=== PATIENT | male | born 1990 | race Caucasian/White ===

== ENCOUNTER 2018-07-14 13:43 | Observation (INO) | payer OTHER ==
[2018-07-14] MEDS ORDERED: methylPREDNISolone SOD SUCC 125 MG/2 ML VIAL IM ONE (13:58)
[2018-07-14] MEDS ORDERED: methylPREDNISolone SOD SUCC 125 MG/2 ML VIAL ONE (13:59)
--- NOTE | 2018-07-14 14:10 | EDPHY ---
H & P Stated Complaint: lower back pain flared while climbing at gym Time Seen by Provider: 07/14/18 13:51 HPI/ROS: CHIEF COMPLAINT: Acute exacerbation of chronic back pain HISTORY OF PRESENT ILLNESS: 28-year-old male history of chronic intermittent left lumbar back pain was [place] ring at a local gym today, started to feel exacerbation of his low back pain with certain moved. He climbed down and rested but notes that his back pain became progressively worse over the next few minutes. At no point did he experience direct trauma or fall onto the area. This feels like his usual back pain exacerbation. He arrives via EMS as he is visiting this area. Patient was given 100 mcg of fentanyl via EMS and notes significant improvement symptoms. He denies: Direct trauma or fall, saddle anesthesia, incontinence, retention, , lower extremity radiculopathy, abdominal pain, dyspnea PRIMARY CARE PROVIDER: REVIEW OF SYSTEMS: A ten point review of systems was performed and is negative with the exception of the items mentioned in the HPI PAST MEDICAL & SURGICAL HISTORY: chronic intermittent low back pain SOCIAL HISTORY:Visiting from out of state, on a road trip, living out of his van PHYSICAL EXAM (Prior to examination, patient consented to physical exam, hands were washed and my usual and customary physical exam procedures followed) 1) GENERAL: Well-developed, well-nourished, alert and oriented. Appears to be in no acute distress as long as he is not moving laying supine however when he is asked to sit up or roll over he complains of pain to the left paraspinous lumbar region. 2) HEAD: Normocephalic, atraumatic 3) HEENT: Pupils equal, round, reactive to light bilaterally. Sclera anicteric. Nasopharynx, oropharynx, clear, no lesions. 4) NECK: Full range of motion, no meningeal signs. 5) LUNGS: Clear auscultation bilaterally, no wheezes, no rhonchi, no retractions. 6) HEART: Regular rate and rhythm, no murmur, no heave, no gallop. 7) ABDOMEN: No guarding, no rebound, no focal tenderness, negative McBurney's, negative Sheppard's, negative Rovsing's, negative peritoneal sign, 8) MUSCULOSKELETAL: Moving all extremities, no focal areas of tenderness, no obvious trauma. No peripheral edema or discoloration. 9) BACK: tender to palpation left paraspinous paraspinous muscle. No CVA tenderness, no midline vertebral tenderness, no fluctuance, no step-off, no obvious trauma, no visual or palpable abnormality. Patella, Achilles reflexes intact to bilateral strength 5/5 10) SKIN: No rash, no petechiae. 11) NEURO: Awake, alert, and oriented to person, place and time. Answers questions appropriately. There were no obvious focal neurologic abnormalities. No cerebellar dysfunction. Normal steady gait. Upper and lower extremities bilaterally with strength 5 / 5, reflexes 2+.. DIFFERENTIAL DIAGNOSIS: In no particular order, including but not limited to, fracture, sprain/strain, cauda equina, spinal infectious etiology. - Personal History Current Tetanus Diphtheria and Acellular Pertussis (TDAP): No - Medical/Surgical History Hx Asthma: No Hx Chronic Respiratory Disease: No Hx Diabetes: No Hx Cardiac Disease: No Hx Renal Disease: No Hx Cirrhosis: No Hx Alcoholism: No Hx HIV/AIDS: No Hx Splenectomy or Spleen Trauma: No Other PMH: chronic back pain - Social History Smoking Status: Current every day smoker Constitutional: Initial Vital Signs Temperature (C) 36.5 C 07/14/18 13:49 Heart Rate 81 07/14/18 13:49 Respiratory Rate 16 07/14/18 13:49 Blood Pressure 144/84 H 07/14/18 13:49 O2 Sat (%) 97 07/14/18 13:49 O2 Delivery Mode Room Air Home Medications: Medication Instructions Recorded NK [No Known Home Meds] 07/14/18 Medical Decision Making Procedures: 2:00 p.m.: Procedure: Trigger point injection Indications: Focal tenderness at the left lumbar paraspinous region Indications risks benefits discussed with patient. Using Solu-Medrol and 0.5% plain bupivacaine on a 27 gauge needle that was introduced into the muscle, multiple injections were fanned in my usual and customary fashion paying careful attention to anatomic landmarks and structures. Patient tolerated procedure well. ED Course/Re-evaluation: Patient has been re-evaluated with serial exams most recently at 3:50 p.m.. He has received trigger-point injections, Flexeril, Decadron, Toradol. States that he is unable to moving does not feel he can be discharged as he is currently living out of his van and has to climb into his van in order to sleep. No neurologic red flag signs or symptoms on exam. Will hold on imaging at this time. Doubt cauda equina or spinal infectious etiology in absence of history of recent intervention , IV drug use, indwelling device. I consulted with the hospitalist at 3:[address] Pj Galeas who will admit patient. Care of patient under supervision of secondary supervising physician Dr Khan with whom I discussed case. - Data Points Medications Given: Discontinued Medications Cyclobenzaprine HCl (Flexeril) 10 mg PO EDNOW ONE Stop: 07/14/18 14:47 Last Admin: 07/14/18 14:55 Dose: 10 mg Dexamethasone (Decadron Injection) 10 mg IVP EDNOW ONE Stop: 07/14/18 14:47 Last Admin: 07/14/18 14:55 Dose: 10 mg Ketorolac Tromethamine (Toradol) 15 mg IVP EDNOW ONE Stop: 07/14/18 14:47 Last Admin: 07/14/18 14:55 Dose: 15 mg Methylprednisolone Sodium Succinate (Solu-Medrol) 125 mg IM EDNOW ONE Stop: 07/14/18 13:59 Last Admin: 07/14/18 14:00 Dose: 125 mg Miscellaneous Medication (Icy Hot Lidocaine/Menthol 4%/1% Patch) 1 patch TD EDNOW ONE Stop: 07/14/18 14:48 Last Admin: 07/14/18 14:55 Dose: 1 patch Departure - Departure Disposition: [facility] Inpatient Acute Clinical Impression: Intractable low back pain, Mountain,rock/wall climb Condition: Fair Referrals: Patient,NotPresent [Unknown] - As per Instructions
[2018-07-14] MEDS ORDERED: CYCLOBENZAPRINE 10 MG TAB PO ONE (14:46)
[2018-07-14] MEDS ORDERED: DEXAMETHASONE 10 MG/ML VIAL IVP ONE (14:46)
[2018-07-14] MEDS ORDERED: KETOROLAC 15 MG/1 ML SDV IVP ONE (14:46)
[2018-07-14] MEDS ORDERED: LIDOCAINE 4%/MENTHOL 1% PATCH TD ONE (14:47)
[2018-07-14] MEDS ORDERED: NITROGLYCERIN 2% 1 GM PACKET ONE (15:34)
[2018-07-14 16:08] LABS: PLATELET COUNT 287 10^3/uL (150-400)
[2018-07-14] MEDS ORDERED: ONDANSETRON DISINTEGRATING 4 MG TAB PO PRN (16:59)
[2018-07-14] MEDS ORDERED: oxyCODONE IR 5 MG TAB PO PRN (16:59)
[2018-07-14] MEDS ORDERED: ONDANSETRON 4 MG/2 ML VIAL IVP PRN (16:59)
--- NOTE | 2018-07-14 17:36 | GHP ---
[f rep st] HISTORY AND PHYSICAL DATE OF ADMISSION: 07/14/2018 HISTORY OF PRESENT ILLNESS: The patient is a 28-year-old gentleman with a history of intermittent le ft lower back pain. He was at the climbing gym today and, after he topped out on a couple of routes, he felt some pain in his lower back and his left side. He laid down on the climbing gym floor feeli ng weak. He was really unable to get up and do anything thereafter. Ultimately, he sought care here in the emergency department. After receiving fentanyl, Flexeril, Toradol, etc, the patient still jeronimo s significant back pain. He also had a lidocaine patch, dexamethasone, and a trigger point injection . He states that he has had previous symptoms like this going back about 7 or 8 years. He has been car ed for because he was in the . It sounds like he received some films. He does not use IV dr napoleon. He has had no incontinence. He has no lower extremity weakness. He was feeling well this morn ing. He has not had fever, chills, unexplained weight loss, rash on the skin, fecal or urinary incon tinence. PAST MEDICAL HISTORY: None. ALLERGIES: None. HOME MEDICATIONS: None. SOCIAL HISTORY: He currently living out of his van. Originally from [place], [place]; this is [facility]. Nonsmoker. FAMILY HISTORY: Reviewed and unremarkable. PHYSICAL EXAMINATION: VITAL SIGNS: Temp 36.5, blood pressure 144/84, now 124/55, pulse 81, breathin g 16 times a minute, 97% on room air. GENERAL: No acute distress, lying flat. HEENT: Sclerae anic teric. Oropharynx clear. Mucous membranes are moist. NECK: Supple without lymphadenopathy or JVD. LUNGS: Clear to auscultation bilaterally. HEART: S1, S2. ABDOMEN: Soft, nontender, nondistende d. LOWER EXTREMITIES: Without edema. Calves are nontender. SKIN: Without rash. NEUROLOGIC: He has 5/5 plantar flexion and dorsiflexion, 5/5 thigh extension and flexion. With leg flexion, it is s omewhat limited by pain and is probably 3/5 or 4/5. There is no imaging. LABS: White count 11; hematocrit 43; platelets 287,000. His initial labs look as if there was speci men drawn above the line with a low potassium of 2.3 and a bicarb of 15 with a serum chloride of 123. Point of care labs are somewhat normal. Repeat is pending. I have discussed the case with Svitlana thapa PA-C. ASSESSMENT/PLAN: A 28-year-old gentleman with low back pain, acute on chronic. 1. Back pain. This does not really raise the specter of disk herniation or unstable back with focal neurologic findings. I will obtain a plain film. We will hold off on more advanced imaging for the time being. Regarding pain, we will put him on scheduled Tylenol, scheduled Toradol, scheduled Alex um with some p.r.n. oral narcotics. We will also add another p.r.n. muscle relaxant. We will stay a way from IV narcotics; I do not think they are necessary. 2. Hypokalemia. I think this is a lab error. We will wait for the result. 3. Metabolic acidosis. Again, I think this is likely to be a lab error and will wait for the repeat . 4. Leukocytosis is mild and will follow. Please note, the patient is afebrile. DISPOSITION: Observation status. /[id number]/MODL
[2018-07-14] MEDS: DIAZEPAM 5 MG TAB PO SCH (18:29)
[2018-07-14] MEDS: KETOROLAC 30 MG/1 ML SDV IVP SCH (20:59)
[2018-07-14] MEDS ORDERED: PATCH REMOVAL 1 EA PATCH TD SCH (21:00)
[2018-07-14] MEDS: ACETAMINOPHEN 500 MG TAB PO SCH (22:26)
[2018-07-15] MEDS: DIAZEPAM 5 MG TAB PO SCH ×4 (00:53→18:13)
[2018-07-15] MEDS: KETOROLAC 30 MG/1 ML SDV IVP SCH ×2 (02:39→08:56)
[2018-07-15] MEDS: ACETAMINOPHEN 500 MG TAB PO SCH ×3 (06:12→22:27)
--- NOTE | 2018-07-15 11:22 | ASMTCMCOM ---
CM Note CM Note Notes: Pt is a 28 y/o man admitted for intractable low back pain. Pt currently lives out of his van. PT has been ordered and awaiting recommendations. Pt will most likely d/c independent when medically stable. CM available for changes. Plan: Independent Date Signed: 07/15/2018 11:22 AM Electronically Signed By:JUMANA Alex
[2018-07-15] MEDS ORDERED: PNEUMOCOCCAL 0.5ML VACCINE VIAL (PNEUMOVAX 23) IM ONE (14:45)
[2018-07-15] MEDS: methylPREDNISolone 4 MG TAB PO SCH ×4 (14:58→21:13)
[2018-07-15] MEDS: LIDOCAINE 4%/MENTHOL 1% PATCH TD SCH (14:59)
--- NOTE | 2018-07-15 19:24 | HOSPPROG ---
Hospitalist Progress Note Assessment/Plan: 1. Severe lumbar back pain, improved since admission -continue with valium, stop toradol, add medrol dose pack -has po pain meds ordered -lumbar xray ordered to ensure no fracture -no indication for MRI at this point -PT while here and can write order as outpt -will need PCP if staying in area to help arrange FU DISPO- likely discharge in AM depending upon ambulation, pain control, and imaging results Subjective: Says still having pain today, better when laying down. Tried to get up with PT, used walker bc hurts to wt bear. Says pain radiates up L back to mid back. Denies pain radiation to buttocks or legs. Denies n/tingling in legs. Denies fever. Denies fall/trauma. Was climbing at a gym, had recently been in [place] on a climbing trip, then drove here. Staying in his van while travelling. GF lives in dorms at . Denies prev MRI of cheryl, had an xray while in the , unsure of results. No previous known disc problems or fractures. Denies bowel/ bladder control issues. Objective: Vital Signs Temp Pulse Resp BP Pulse Ox 98.2 F 51 L 14 108/44 L 95 07/15/18 16:49 07/15/18 16:49 07/15/18 16:49 07/15/18 16:49 07/15/18 16:49 Laboratory Results 07/14/18 15:55 07/14/18 16:50 07/14/18 07/15/18 07/16/18 11:59 11:59 11:59 Intake Total 800 500 Balance 800 500 - Time Spent With Patient Time Spent with Patient: greater than 35 minutes (total floor time) Time Spent with Patient: Greater than 35 minutes spent on this patients care, greater than 50% of time spent counseling, educating, and coordinating care regarding the above mentioned plan. - Pending Discharge Pending Discharge Within 48 Hours: Yes Pending Discharge Date: 07/17/18 Pending Discharge Time: 11:00 - Physical Exam Constitutional: no apparent distress, appears nourished, other (laying flat, uncomfortable/slow to move to LL side for exam) Eyes: anicteric sclera, EOMI Ears, Nose, Mouth, Throat: moist mucous membranes, hearing normal Cardiovascular: regular rate and rhythym, no murmur, rub, or gallop, No edema Respiratory: no respiratory distress, no rales or rhonchi, clear to auscultation Gastrointestinal: normoactive bowel sounds, soft, non-tender abdomen, No guarding, No rebound, No distension Skin: warm, normal color Musculoskeletal: full muscle strength (moves B LE, nl/equal strength B LE, uncomfortable to raise legs off bed), muscular tenderness (left paraspinous in lumbar area, with marked spasm), other Neurologic: sensation intact bilaterally (LE), No weakness Psychiatric: interacting appropriately, not anxious, not encephalopathic ICD10 Worksheet Patient Problems: Problems Problem Status Onset Intractable low back pain Acute Mountain,rock/wall climb Acute
[2018-07-15] MEDS ORDERED: PATCH REMOVAL 1 EA PATCH TD SCH (21:00)
[2018-07-16] MEDS: DIAZEPAM 5 MG TAB PO SCH ×3 (00:48→12:53)
[2018-07-16] MEDS: ACETAMINOPHEN 500 MG TAB PO SCH ×2 (05:49→15:06)
[2018-07-16] MEDS: methylPREDNISolone 4 MG TAB PO SCH ×2 (07:48→12:53)
[2018-07-16] MEDS: LIDOCAINE 4%/MENTHOL 1% PATCH TD SCH (09:52)
[2018-07-16] MEDS ORDERED: DIAZEPAM 5 MG TAB PO PRN (15:07)
[2018-07-16] MEDS ORDERED: oxyCODONE IR 5 MG TAB PO PRN (15:08)
[2018-07-16 15:15] VITALS: BP 104/52
--- NOTE | 2018-07-16 15:17 | ASDISCHSUM ---
Discharge Information Plan Status:Home with No Needs Medically Cleared to Leave: Discharge Date: D/C Disposition:Home, Routine, Self-Care ADT D/C Disposition:Home, Routine, Self-Care Projected Discharge Date:07/16/2018 12:00 AM Transportation at D/C:Family Discharge Delay Reason: Follow-Up Date:07/16/2018 12:00 AM Discharge Slot: Final Diagnosis: Placement Information Patient Contact Information Contact Name:KEVYN Relationship:Mother Address: Work Phone: City: [facility] Phone: State/[place] Code: Email: Financial Information Financial Class:HMO and PPO Plans Primary Plan Desc:[facility] [employer] [facility] Primary Plan Number:[id number] Secondary Plan Desc: Secondary Plan Number: Assessment Information [facility] Progress Note CM Note PRAKASH Note Notes: Pt is a 28 y/o man admitted for intractable low back pain. Pt currently lives out of his van. PT has been ordered and awaiting recommendations. Pt will most likely d/c independent when medically stable. CM available for changes. Plan: Independent Date Signed: 07/15/2018 11:22 AM Electronically Signed By:JUMANA Alex Case Management Discharge Plan Note Case Management Discharge Discharge Order Complete? Answers: Yes Patient to Obtain Answers: via Family Medications Transportation Arranged Answers: Family/Friends Discharge Comments Notes: CM spoke with pt and his partner at length about discharge plans. After pt worked with PT he felt much more comfortable about being able to ambulate and seek outpatient follow-up. Pt reports he feels scared that he doesn't have clear answers about why his back hurts so bad but said he will follow-up with an Ortho doctor and possibly get PT in outpatient. CM and pt discussed [facility] linkage and says he is not linked there for insurance. CM encouraged pt to obtain linkage as backup/additional support for back issue that pt reports is service related. Pt reported no other CM concerns. Pt requested meds be filled at [facility] off , MD notified. Pt's partner to transport. Date Signed: 07/16/2018 03:15 PM Electronically Signed By:JUMANA Bolden Intervention Information
--- NOTE | 2018-07-16 15:17 | ASMTLACE ---
LACE Length of stay for Answers: 1 day current admission Acuity / Level of Answers: No Care: Did the patient have an inpatient admission? Comorbidities - select Answers: Other Notes: back injury service all that apply related # of Emergency department Answers: 0 visits in the last 6 months Score: 2 Date Signed: 07/16/2018 03:17 PM Electronically Signed By:JUMANA Bolden
[2018-07-16] MEDS ORDERED: methylPREDNISolone 4 MG TAB PO SCH (21:00)
[2018-07-17] MEDS ORDERED: methylPREDNISolone 4 MG TAB PO SCH (07:30)
[2018-07-18] MEDS ORDERED: methylPREDNISolone 4 MG TAB PO SCH (07:30)
[2018-07-19] MEDS ORDERED: methylPREDNISolone 4 MG TAB PO SCH (07:30)
[2018-07-20] MEDS ORDERED: methylPREDNISolone 4 MG TAB PO SCH (07:30)
== END 2018-07-16 15:58 | disposition home or self-care (01) ==
LOC: F3N 18:17
PROVIDERS: ADMIT Internal Medicine; ATTEND Family Medicine
PROC: 3E0233Z Introduction of Anti-inflammatory into Muscle, Percutaneous Approach (ICD-10-PCS; principal; 2018-07-14)
PROC: 3E023BZ Introduction of Anesthetic Agent into Muscle, Percutaneous Approach (ICD-10-PCS; principal; 2018-07-14)
DX: M54.5 Low back pain (principal)
CPT/HCPCS: 20552; 72110; 90471; 97116; 97161; 97530; G0378; 82435-PO; 82565-PO; 82947-PO; 84132-PO; 84295-PO; 84520-PO; 85014-ER; G0008; G0009; J1100; J1885; J2930